=== PATIENT | female | born 1980 ===

== ENCOUNTER 2022-02-07 15:07 | Outpatient (CLI) | payer BC, SELFPAY ==
--- NOTE | 2022-02-07 15:15 | US_ITS ---
WS: [id number] Thyroid ultrasound, 02/07/2022 Clinical Data: Thyroid nodule Comparison: None. Findings: The right lobe of thyroid measures 4.2 cm x 1.2 cm x 1.6 cm. The left lobe measures 4.8 cm x 1.4 cm x 1.3 cm. There is a 0.95 x 1.30 x 1.34 cm nodule in the left lobe of the thyroid with consistent echotexture and a well-defined border. The isthmus measured 0.3 mm. The echotexture of the thyroid is uniform. No cyst or masses are seen. US/US thyroid [id number] Impression: 1. Normal right lobe of the thyroid. 2. 1.34 cm nodule left lobe of thyroid with consistent echotexture.
== END 2022-02-07 15:08 | disposition home or self-care (01) ==
PROVIDERS: PCP Obstetrics & Gynecology; Visit Provider Otolaryngology
DX: E04.1 Nontoxic single thyroid nodule (principal); Z86.39 Personal history of other endocrine, nutritional and metabolic disease
CPT/HCPCS: 76536